=== PATIENT | male | born 1975 | race Caucasian/White ===

== ENCOUNTER 2018-11-29 15:43 | Emergency (ER) | payer OTHER ==
[~2018-11-29] VITALS: Ht 157.5 cm; Wt 80.3 kg
[2018-11-29 15:47] VITALS: Ht 157.5 cm; Wt 80.3 kg
[2018-11-29 19:59] VITALS: BP 124/75
== END 2018-11-29 19:59 | disposition home or self-care (01) ==
LOC: ED 15:43
DX: S01.511A Laceration without foreign body of lip, initial encounter (principal); W22.8XXA Striking against or struck by other objects, initial encounter; Y93.89 Activity, other specified; Y92.89 Other specified places as the place of occurrence of the external cause; Y99.8 Other external cause status
CPT/HCPCS: J2001